=== PATIENT | female | born 1985 | race Caucasian/White ===

== ENCOUNTER 2018-03-07 20:40 | Emergency (ER) | payer BC, OTHER ==
[2018-03-07 21:32] VITALS: BP 107/72; PULSE 82; RESP 16; TEMP 97.7; O2SAT 98
--- NOTE | 2018-03-07 22:00 | ED PDOC ---
Lower Extremity Pain/Injury Time Seen by Provider: 03/07/18 21:36 Chief Complaint (Nursing): Lower Extremity Problem/Injury History Per: Patient Additional Complaint(s): Pt. states earlier today she twisted her L ankle coming down a step. States since then she's had progressively worsening pain in the ankle. States she did not fall down. Also states she is currently 4 weeks . Denies trauma to abdomen or pelvic area, abdominal pain, pelvic pain, vaginal bleeding, numbness , tingling, other injury. Past Medical History Reviewed: Historical Data, Nursing Documentation, Vital Signs Vital Signs: Last Vital Signs Temp 97.7 F 03/07/18 21:32 Pulse 82 03/07/18 21:32 Resp 16 03/07/18 21:32 BP 107/72 03/07/18 21:32 Pulse Ox 98 03/07/18 21:32 - Surgical History Surgical History: No Surg Hx - Family History Family History: States: No Known Family Hx - Home Medications Home Medications: Ambulatory Orders Medication Instructions Recorded Azithromycin [Zithromax Z-Freddy] 250 mg PO DAILY #5 tab 10/29/15 - Allergies Allergies/Adverse Reactions: Allergies Allergy/AdvReac Type Severity Reaction Status Date / Time No Known Allergies Allergy Verified 10/29/15 17:46 Review of Systems ROS Statement: Except As Marked, All Systems Reviewed And Found Negative Physical Exam - Physical Exam Appears: Positive for: Well, Non-toxic, No Acute Distress Skin: Positive for: Normal Color, Warm. Negative for: Rash Eye Exam: Positive for: Normal appearance Pulses-Dorsalis Pedis (L): 2+ Pulses-Dorsalis Pedis (R): 2+ Extremity: Positive for: Other (LEFT lower extremity: minimal tenderness to lateral malleolus without swelling or deformity; no leg or foot tenderness) Neurologic/Psych: Positive for: Alert, Oriented - ECG O2 Sat by Pulse Oximetry: 98 - Radiology X-Ray: Interpreted by Me (R ankle x-ray) X-Ray Interpretation: No Acute Disease - Progress ED Course And Treament: Tylenol 975mg PO, L ankle x-rays ordered. Pt. informed of risks of radiation despite being shielded during x-ray but still accepts risks. Ankle immobilized in aircast splint applied by tractor trailer technician (Haylie). Crutches provided. Disposition - Clinical Impression Clinical Impression: Ankle injury - Patient ED Disposition Is Patient to be Admitted: No - Disposition Referrals: Podiatry Clinic [Outside] Disposition: Routine/Home Disposition Time: 22:03 Condition: STABLE Additional Instructions: Follow up with podiatry clinic for further evaluation Take Tylenol for pain. Return to ED immediately if symptoms worsen Instructions: Ankle Sprain (DC), How to Use Crutches, Going Up and Down Curbs or Stairs With a Walker or Crutches Forms: [employer] ([place]), [facility] ED School/Work Excuse
--- NOTE | 2018-03-08 14:06 | RAD ---
PROCEDURE: Left Ankle Radiographs. HISTORY: trauma COMPARISON: None FINDINGS: BONES: Normal. No fracture. JOINTS: Normal. No osteoarthritis. Ankle mortise maintained. Talar dome intact SOFT TISSUES: Normal. OTHER FINDINGS: None. IMPRESSION: Normal left ankle radiographs.
== END 2018-03-07 22:38 | disposition home or self-care (01) ==
LOC: H.ER 20:40
DX: S99.912A Unspecified injury of left ankle, initial encounter (principal); X50.9XXA Other and unspecified overexertion or strenuous movements or postures, initial encounter; Y92.89 Other specified places as the place of occurrence of the external cause